=== PATIENT | male | born 1950 | race Asian ===

== ENCOUNTER 2018-11-13 08:51 | Emergency (ER) | payer OTHER ==
[~2018-11-13] VITALS: Ht 167.6 cm; Wt 77.1 kg
[2018-11-13 08:59] VITALS: BP 170/96
[2018-11-13] MEDS ORDERED: KETOROLAC TROMETH 30 MG/ML 1ML VIAL IM ONE (10:00)
== END 2018-11-13 11:20 | disposition home or self-care (01) ==
LOC: ER 08:51 → EDBD 08:51 → ER 11:05
DX: M54.5 Low back pain (principal); I10 Essential (primary) hypertension; V49.9XXA Car occupant (driver) (passenger) injured in unspecified traffic accident, initial encounter; Y93.89 Activity, other specified; Y92.488 Other paved roadways as the place of occurrence of the external cause; Y99.8 Other external cause status
CPT/HCPCS: 72100; 96372; 99283; J1885